=== PATIENT | female | born 1950 | race Hispanic/Latino ===

== ENCOUNTER 2017-10-02 18:40 | Observation (INO) | payer OTHER ==
[2017-10-02] MEDS ORDERED: TETANUS & DIPHTHERIA TOX,ADULT 0.5 ML VIAL ONE (19:38)
--- NOTE | 2017-10-02 19:41 | RAD REPORT ---
EXAM DESCRIPTION: RAD - Foot Right 3 View - 10/02/2017 7:24 pm CLINICAL HISTORY: Pain;Swelling COMPARISON: No comparisons FINDINGS: Moderate soft tissue swelling is seen along the dorsum of the forefoot. No acute fractures demonstrated. Small bilateral calcaneal spurs noted.
[2017-10-02 19:59] LABS: Urine Blood NEGATIVE (NEG); Urine Glucose 3+ (NEG); Urine Protein NEGATIVE (NEG); Urine Specific Gravity 1.015 (1.005-1.030); Urine pH 7.5 (5.0-7.0)
--- NOTE | 2017-10-02 20:23 | RAD REPORT ---
EXAM DESCRIPTION: CT - Head Brain Wo Cont - 10/02/2017 8:17 pm CLINICAL HISTORY: MENTAL STATUS CHANGE Drowsiness COMPARISON: HEAD BRAIN W O CONTRAST dated 08/11/2011; HEAD BRAIN W O CONTRAST dated 03/24/2011; HEAD BR AIN W O CONTRAST dated 03/24/2011; HEAD BRAIN W O CONTRAST dated 01/16/2011 TECHNIQUE: All CT scans are performed using dose optimization technique as appropriate and may inclu de automated exposure control or mA/KV adjustment according to patient size. FINDINGS: No intracranial hemorrhage, hydrocephalus or extra-axial fluid collection.No areas of brai n edema or evidence of midline shift. The paranasal sinuses and mastoids are clear. The calvarium is intact. IMPRESSION: No acute intracranial abnormality.
[2017-10-02 20:32] LABS: Absolute Monocytes 0.4 K/uL (0.1-1.3); Eosinophils % 2.4 % (0-4.4); Hematocrit 36.2 % (36.0-45.0); MCH 28.6 pg (27.0-35.0); MCV 88.1 fL (80-100); Monocytes % 6.4 % (3.3-12.3); RBC Red Blood Cell Count 4.11 M/uL (3.86-4.86)
[2017-10-02 20:35] LABS: Protime INR 0.92
[2017-10-02 20:39] LABS: ALT/SGPT 23 U/L (12-78); AST/SGOT 14 U/L (15-37); Albumin 3.5 g/dL (3.4-5.0); Alkaline Phosphatase 72 U/L (45-117); BUN Blood Urea Nitrogen 11 mg/dL (7-18); Bicarbonate 24 mmol/L (21-32); Bilirubin Direct < 0.1 mg/dL (0-0.2); Bilirubin Total 0.2 mg/dL (0.2-1.0); CKMB Creatine Kinase MB < 1.0 ng/mL (0.3-3.6); Creatine Phosphokinase 91 U/L (26-192); Glucose Level 91 mg/dL (74-106); Magnesium 2.3 mg/dL (1.8-2.4); NT PRO-BNP 38 pg/mL (<125); Potassium 3.8 mmol/L (3.5-5.1); Protein, Total 6.8 g/dL (6.4-8.2); Sodium Level 141 mmol/L (136-145)
[2017-10-02] MEDS ORDERED: LIDOCAINE 1% W/EPI 1:100,000 MDV 50 ML VIAL ONE (21:11)
--- NOTE | 2017-10-02 21:57 | ER ---
Nurse's Notes [facility] Name: Darby White Age: 67 yrs Sex: Female : 1950 Arrival Date: 10/02/2017 Time: 18:46 Bed 25 Private MD: Sterling Zapata E Diagnosis: Altered mental status, unspecified;Laceration without foreign body of foot-Right Presentation: 10/02 18:49 Presenting complaint: Child states: her mother had a car lift fall down on her right sv foot about an hour ago. Daughter states pt is disoriented as well since. Transition of care: patient was not received from another setting of care. Onset of symptoms was October 02, 2017. Care prior to arrival: None. 18:49 Method Of Arrival: Wheelchair sv 18:49 Acuity: MICA 2 sv 20:43 Risk Assessment: Do you want to hurt yourself or someone else? Patient reports no mg2 desire to harm self or others. Initial Sepsis Screen: Does the patient meet any 2 criteria? No. Patient's initial sepsis screen is negative. Does the patient have a suspected source of infection? No. Patient's initial sepsis screen is negative. Historical: - Allergies: 18:50 No Known Allergies; sv - Home Meds: 23:51 gabapentin 300 mg oral cap 1 cap 3 times per day [Active]; losartan 25 mg oral tab 1 mg2 tab once daily [Active]; ezetimibe oral oral [Active]; duloxetine 60 mg oral cpDR 1 cap once daily [Active]; zolpidem 10 mg Oral tab 1 tab as needed [Active]; Invokana 100 mg oral tab [Active]; Levothroid 75 mcg Oral tab 1 tab once daily [Active]; acetazolamide 250 mg Oral tab 1 tab 2 times per day [Active]; aspirin 81 mg Oral chew [Active]; atorvastatin 40 mg oral tab [Active]; metformin 1,000 mg Oral tab [Active]; Calcium Citrate Oral [Active]; Prilosec 20 mg Oral cpDR [Active]; brinzolamide opthalmic [Active]; - PMHx: 18:50 Diabetes - NIDDM; Hypertension; CHF; left eye blindness; sv 18:51 Glaucoma; Thyroid problem; sv - PSHx: 18:50 EYE SURGERY; Knee surgery; Carpal Tunnel Repair; Tubal ligation; sv - Immunization history:: Adult Immunizations up to date. - Social history:: Smoking status: Patient uses tobacco products. - Ebola Screening: : No symptoms or risks identified at this time. Screenin:43 Abuse screen: Denies threats or abuse. Denies injuries from another. Nutritional mg2 screening: No deficits noted. Tuberculosis screening: No symptoms or risk factors identified. Fall Risk IV access (20 points). Assessment: 20:17 Reassessment: Patient appears in no apparent distress at this time. patient sent to ct mg2 scan. 20:41 General: Appears in no apparent distress. comfortable, Behavior is calm, cooperative. mg2 Pain: Complains of pain in right foot Pain does not radiate. Pain currently is 6 out of 10 on a pain scale. Quality of pain is described as aching. Neuro: Level of Consciousness is awake, alert, obeys commands, Oriented to person, place, situation. Cardiovascular: Capillary refill < 3 seconds Patient's skin is warm and dry. Respiratory: Airway is patent Respiratory effort is even, unlabored, Respiratory pattern is regular, symmetrical. GI: No signs and/or symptoms were reported involving the gastrointestinal system. : No signs and/or symptoms were reported regarding the genitourinary system. EENT: No signs and/or symptoms were reported regarding the EENT system. Derm: Skin laceration in the right foot Skin is pink, warm \T\ dry. normal, Wound noted right foot Wound is 0.5 cm long. Musculoskeletal: Circulation, motion, and sensation intact. Swelling present in right foot. Injury Description: Laceration sustained to right foot is clean. 21:19 Reassessment: Patient appears in no apparent distress at this time. Patient and/or mg2 family updated on plan of care and expected duration. Pain level reassessed. Patient is alert, oriented x 3, equal unlabored respirations, skin warm/dry/pink. 23:09 Reassessment: Patient appears in no apparent distress at this time. Patient and/or mg2 family updated on plan of care and expected duration. Pain level reassessed. Patient is alert, oriented x 3, equal unlabored respirations, skin warm/dry/pink. dr aguilar came and assessed the patient, patient informed about the plan for admission. Vital Signs: 18:51 BP 125 / 73; Pulse 86; Resp 18; Temp 97.6; Pulse Ox 99% ; Weight 61.23 kg; Height 4 ft. sv 9 in. (144.78 cm); Pain 5/10; 20:00 BP 122 / 78; Pulse 78; Resp 18; Pulse Ox 100% ; Pain 4/10; mg2 21:19 BP 123 / 78; Pulse 86; Resp 18; Pulse Ox 100% ; Pain 4/10; mg2 22:00 BP 105 / 76 RA Supine (auto/reg); Pulse 83 MON; Resp 20 S; Pulse Ox 100% on R/A; jp3 23:09 BP 121 / 72; Pulse 74; Resp 18; Pulse Ox 97% on R/A; Pain 0/10; mg2 18:51 Body Mass Index 29.21 (61.23 kg, 144.78 cm) sv ED Course: 18:46 Patient arrived in ED. sb2 18:46 Sterling Zapata MD is Private Physician. sb2 18:49 Arm band placed on right wrist. Patient placed in an exam room, on a stretcher, Patient sv Spoke to Dr Soria regarding pt. Daughter stated that she is disoriented and she is normally A \T\ O x4. Pt was taken back to room and asking for her sister, who has been . 18:50 Triage completed. sv 19:01 Marcelo Fenton, AKANKSHA is Primary Nurse. mg2 19:10 Juan Dan PA is PHCP. cp 19:10 Sterling Soria MD is Attending Physician. cp 19:20 X-ray completed. Portable x-ray completed in exam room. Patient tolerated procedure sw well. 19:21 Foot Right 3 View XRAY In Process Unspecified. EDMS 19:50 Inserted saline lock: 22 gauge in left antecubital area, using aseptic technique. Blood jp3 collected. 19:55 Initial lab(s) drawn, by ma, sent to lab. First set of blood cultures drawn via jp3 22-gauge IV in Left A/C. 20:17 CT Head Brain wo Cont In Process Unspecified. EDMS 20:30 Second set of blood cultures drawn via 23-gauge butterfly needle in Right A/C. jp3 20:31 Juan Flores MD is Attending Physician. cp 20:35 Lactate Sent. jp3 20:35 Procalcitonin Sent. jp3 20:35 AMMONIA Sent. jp3 20:36 Blood Culture Adult (2) Sent. jp3 20:36 Basic Metabolic Panel Sent. jp3 20:36 CBC with Diff Sent. jp3 20:36 Ckmb Sent. jp3 20:36 CPK Sent. jp3 20:36 LFT's Sent. jp3 20:36 Magnesium Sent. jp3 20:36 NT PRO-BNP Sent. jp3 20:36 PT-INR Sent. jp3 20:36 Ptt, Activated Sent. jp3 20:36 Troponin (emerg Dept Use Only) Sent. jp3 20:43 Patient has correct armband on for positive identification. Call light in reach. mg2 21:45 Urine collected: clean catch specimen, clear, melissa colored. jp3 21:45 UDS Sent. jp3 21:56 Sandra Jefferson MD is Hospitalizing Provider. cp 23:40 No provider procedures requiring assistance completed. Patient admitted, IV remains in mg2 place. Administered Medications: 19:41 Drug: Tetanus-Diphtheria Toxoid Adult 0.5 ml {Multifocal Lens Inspector: [employer]. Exp: mg2 10/29/2019. Lot #: [id number]. } Route: IM; Site: left deltoid; 20:40 Follow up: Response: No adverse reaction mg2 22:49 Drug: HYDROcodone-acetaminophen 5 mg-325 mg 1 tabs Route: PO; mg2 23:42 Follow up: Response: No adverse reaction; Marked relief of symptoms mg2 Outcome: 21:57 Decision to Hospitalize by Provider. cp 23:41 Admitted to Med/surg accompanied by tech, via wheelchair, room 231, with chart, Report mg2 called to AKANKSHA Carey 23:41 Condition: stable 23:41 Instructed on the need for admit, Demonstrated understanding of instructions. 10/03 00:38 Patient left the ED. mg2 Signatures: Dispatcher [employer] EDEricka Rand, RN Nadya Taylor Corey, JUNITO PA Ana Paula Shafer sb2 Marcelo Fenton RN AKANKSHA mg2 [place] Acosta jp3
--- NOTE | 2017-10-02 21:57 | EDPHYS ---
Physician Documentation [facility] Name: Darby White Age: 67 yrs Sex: Female : 1950 Arrival Date: 10/02/2017 Time: 18:46 Bed 25 Private MD: Sterling Zapata E ED Physician Juan Flores HPI: 10/02 19:15 This 67 yrs old Female presents to ER via Wheelchair with complaints of Foot cp Injury, Altered Mental Status. 19:15 The patient presents with an injury, a laceration, clean. cp 19:15 The complaints affect the dorsum of left foot. Context: The problem was sustained at home, resulted from a direct blow, from a heavy object. Onset: The symptoms/episode began/occurred today. Associated signs and symptoms: Pertinent positives: family reports patient has been confused and altered today, Pertinent negatives fever, numbness, vomiting. Treatment prior to arrival includes: no previous treatment. Historical: - Allergies: 18:50 No Known Allergies; sv - Home Meds: 23:51 gabapentin 300 mg oral cap 1 cap 3 times per day [Active]; losartan 25 mg oral tab 1 mg2 tab once daily [Active]; ezetimibe oral oral [Active]; duloxetine 60 mg oral cpDR 1 cap once daily [Active]; zolpidem 10 mg Oral tab 1 tab as needed [Active]; Invokana 100 mg oral tab [Active]; Levothroid 75 mcg Oral tab 1 tab once daily [Active]; acetazolamide 250 mg Oral tab 1 tab 2 times per day [Active]; aspirin 81 mg Oral chew [Active]; atorvastatin 40 mg oral tab [Active]; metformin 1,000 mg Oral tab [Active]; Calcium Citrate Oral [Active]; Prilosec 20 mg Oral cpDR [Active]; brinzolamide opthalmic [Active]; - PMHx: 18:50 Diabetes - NIDDM; Hypertension; CHF; left eye blindness; sv 18:51 Glaucoma; Thyroid problem; sv - PSHx: 18:50 EYE SURGERY; Knee surgery; Carpal Tunnel Repair; Tubal ligation; sv - Immunization history:: Adult Immunizations up to date. - Social history:: Smoking status: Patient uses tobacco products. - Ebola Screening: : No symptoms or risks identified at this time. ROS: 19:20 Constitutional: Negative for body aches, chills, fever, poor PO intake. cp 19:20 Eyes: Negative for injury, pain, redness, and discharge. cp 19:20 ENT: Negative for drainage from ear(s), ear pain, sore throat, difficulty swallowing, difficulty handling secretions. 19:20 Cardiovascular: Negative for chest pain, edema, palpitations. 19:20 Respiratory: Negative for cough, shortness of breath, wheezing. 19:20 Abdomen/GI: Negative for abdominal pain, nausea, vomiting, and diarrhea, constipation, black/tarry stool, rectal bleeding. 19:20 Back: Negative for pain at rest, pain with movement, radiated pain. 19:20 : Negative for urinary symptoms. 19:20 MS/extremity: Positive for injury or acute deformity, laceration, of the dorsum left foot, Negative for paresthesias. 19:20 Neuro: Positive for altered mental status, Negative for headache, loss of consciousness, syncope, near syncope, weakness. 19:20 All other systems are negative. Exam: 19:27 Constitutional: The patient appears in no acute distress, alert, awake, cp non-diaphoretic, non-toxic, well developed, well nourished. 19:27 Head/Face: Normocephalic, atraumatic. cp 19:27 Eyes: Periorbital structures: appear normal, Pupils: equal, round, and reactive to light and accomodation, Extraocular movements: intact throughout, Conjunctiva: normal, no exudate, no injection, Sclera: no appreciated abnormality, Lids and lashes: appear normal, bilaterally. 19:27 ENT: External ear(s): are unremarkable, Ear canal(s): are normal, clear, TM's: dullness, bilaterally, Nose: is normal, Mouth: Lips: moist, Oral mucosa: pink and intact, moist, Posterior pharynx: is normal, airway is patent, no erythema, no exudate, Voice: is normal. 19:27 Neck: ROM/movement: is normal, is supple, without pain, no range of motions limitations, no meningismus, no nuchal rigidity. 19:27 Chest/axilla: Inspection: normal, Palpation: is normal, no crepitus, no tenderness. 19:27 Cardiovascular: Rate: normal, Rhythm: regular, Pulses: Pulses are 2+ in right radial artery and left radial artery. Edema: is not appreciated, JVD: is not appreciated. 19:27 Respiratory: the patient does not display signs of respiratory distress, Respirations: normal, no use of accessory muscles, no retractions, no splinting, no tachypnea, labored breathing, is not present, Breath sounds: are clear throughout, no decreased breath sounds, no stridor, no wheezing. 19:27 Abdomen/GI: Inspection: abdomen appears normal, Palpation: abdomen is soft and non-tender, in all quadrants. 19:27 Back: pain, is absent, ROM is normal. 19:27 Skin: injury, laceration(s), the wound is approximately 1 cm(s), of the dorsum left foot, that can be described as clean, no foreign body, linear, with mild bleeding. 19:27 Neuro: Orientation: to person, situation, Not oriented to time, Mentation: lucid, able to follow commands, Cerebellar function: is grossly normal, Motor: moves all fours, strength is normal, Sensation: no obvious gross deficits. 20:36 ECG was reviewed by the Attending Physician. cp Vital Signs: 18:51 BP 125 / 73; Pulse 86; Resp 18; Temp 97.6; Pulse Ox 99% ; Weight 61.23 kg; Height 4 ft. sv 9 in. (144.78 cm); Pain 5/10; 20:00 BP 122 / 78; Pulse 78; Resp 18; Pulse Ox 100% ; Pain 4/10; mg2 21:19 BP 123 / 78; Pulse 86; Resp 18; Pulse Ox 100% ; Pain 4/10; mg2 22:00 BP 105 / 76 RA Supine (auto/reg); Pulse 83 MON; Resp 20 S; Pulse Ox 100% on R/A; jp3 23:09 BP 121 / 72; Pulse 74; Resp 18; Pulse Ox 97% on R/A; Pain 0/10; mg2 18:51 Body Mass Index 29.21 (61.23 kg, 144.78 cm) sv Laceration: 21:57 Wound Repair of 1cm ( 0.4in ) subcutaneous laceration to dorsum of right foot. Linear cp shaped.. Distal neuro/vascular/tendon intact. Anesthesia: Wound infiltrated with 2 mls of 1% lidocaine w/ Epi. Wound prep: Moderate cleansing by nurse. Skin closed with 1 4-0 Prolene using interrupted sutures and sterile technique. Dressed with Bacitracin, 4x4's. Patient tolerated well. MDM: 19:11 Patient medically screened. cp 20:00 Differential diagnosis: dislocation, open fracture, closed fracture, contusion, sepsis, cp medication reaction, UTI. 21:05 Data reviewed: vital signs, nurses notes, lab test result(s), EKG, radiologic studies, cp CT scan, plain films. 21:05 Test interpretation: by ED physician or midlevel provider: ECG, plain radiologic cp studies. Response to treatment: the patient's symptoms have mildly improved after treatment. 21:10 Physician consultation: Sandra Jefferson MD was called at 21:10, was contacted at 21:10, regarding admission, to the telemetry unit. patient's condition. 10/02 19:32 Order name: Basic Metabolic Panel; Complete Time: 21:01 10/02 21:02 Interpretation: Normal except: CL 109; GFR 72. 10/02 19:32 Order name: CBC with Diff; Complete Time: 21:01 10/02 21:02 Interpretation: Normal except: HGB 11.8; BASO% 2.0. 10/02 19:32 Order name: Ckmb; Complete Time: 21:01 10/02 19:32 Order name: CPK; Complete Time: 21:01 10/02 19:32 Order name: LFT's; Complete Time: 21:01 10/02 19:32 Order name: Magnesium; Complete Time: 21:01 10/02 19:32 Order name: NT PRO-BNP; Complete Time: 21:01 10/02 19:32 Order name: PT-INR; Complete Time: 21:01 cp 10/02 19:32 Order name: Ptt, Activated; Complete Time: 21:01 10/02 19:32 Order name: Troponin (emerg Dept Use Only); Complete Time: 21:01 10/02 19:32 Order name: Blood Culture Adult (2) 10/02 19:32 Order name: AMMONIA; Complete Time: 21:01 10/02 19:32 Order name: Procalcitonin; Complete Time: 21:57 10/02 21:57 Interpretation: Reviewed. 10/02 19:32 Order name: Lactate; Complete Time: 21:01 10/02 19:00 Order name: Foot Right 3 View XRAY; Complete Time: 20:30 sv 10/02 20:30 Interpretation: Report reviewed. cp 10/02 19:15 Order name: Urine Dipstick-Ancillary (obtain specimen); Complete Time: 19:41 cp 10/02 19:32 Order name: EKG; Complete Time: 19:33 cp 10/02 19:32 Order name: Cardiac monitoring; Complete Time: 20:15 cp 10/02 19:32 Order name: EKG - Nurse/Tech; Complete Time: 20:40 cp 10/02 19:32 Order name: IV Saline Lock; Complete Time: 20:15 cp 10/02 19:32 Order name: Labs collected and sent; Complete Time: 20:15 cp 10/02 19:32 Order name: O2 Per Protocol; Complete Time: 20:15 cp 10/02 19:32 Order name: O2 Sat Monitoring; Complete Time: 20:15 cp 10/02 19:32 Order name: CT Head Brain wo Cont; Complete Time: 20:30 cp 10/02 20:30 Interpretation: Report reviewed. 10/02 19:36 Order name: Urine Dipstick--Ancillary (enter results); Complete Time: 20:30 mw2 10/02 20:30 Interpretation: Normal except: UGLUC 3+; UPH 7.5. cp 10/02 21:08 Order name: UDS; Complete Time: 23:33 cp 10/02 23:34 Interpretation: Reviewed. cp 10/02 23:04 Order name: Echo with Doppler EDMS 10/02 23:04 Order name: Carotid Artery Bilateral EDMS EC:36 Rate is 78 beats/min. Rhythm is regular. ND interval is normal. QRS interval is normal. cp QT interval is normal. Interpreted by me. Reviewed by me. Administered Medications: 19:41 Drug: Tetanus-Diphtheria Toxoid Adult 0.5 ml {Motor Vehicle Field Representative: [employer]. Exp: mg2 10/29/2019. Lot #: [id number]. } Route: IM; Site: left deltoid; 20:40 Follow up: Response: No adverse reaction mg2 22:49 Drug: HYDROcodone-acetaminophen 5 mg-325 mg 1 tabs Route: PO; mg2 23:42 Follow up: Response: No adverse reaction; Marked relief of symptoms mg2 Disposition: 08/24/18 21:57 Hospitalization ordered by Sandra Jefferson for Observation. Preliminary diagnosis are Altered mental status, unspecified, Laceration without foreign body of foot - Right. - Bed requested for Telemetry/MedSurg (observation). - Status is Observation. mg2 - Condition is Stable. - Problem is new. - Symptoms have improved. UTI on Admission? No Addendum: 10/05/2017 06:31 Co-signature as Attending Physician, Juan Flores MD I agree with the assessment and c posada plan of care. Signatures: Dispatcher [employer] EDIesha Mendoza RN Ericka Chou RN RN sv Anderson, Corey, MD MD cha Page, Corey, PA PA Marcelo Villafuerte RN RN mg2 Corrections: (The following items were deleted from the chart) 10/02 23:25 21:57 Hospitalization Ordered by Sandra Jefferson MD for Observation. Preliminary diagnosis is Altered mental status, unspecified; Laceration without foreign body of foot - Right. Bed requested for Telemetry/MedSurg (observation). Status is Observation. Condition is Stable. Problem is new. Symptoms have improved. UTI on Admission? No. cp 10/03 00:38 10/02 23:25 10/02/2017 21:57 Hospitalization Ordered by Sandra Jefferson MD for mg2 Observation. Preliminary diagnosis is Altered mental status, unspecified; Laceration without foreign body of foot - Right. Bed requested for Telemetry/MedSurg (observation). Status is Observation. Condition is Stable. Problem is new. Symptoms have improved. UTI on Admission? No. kl
[2017-10-02 22:34] LABS: Barbiturates NEGATIVE (NEGATIVE); Benzodiazepines NEGATIVE (NEGATIVE); Cocaine NEGATIVE (NEGATIVE); METHAMPHETAM NEGATIVE (NEGATIVE); Methadone NEGATIVE (NEGATIVE); Opiates NEGATIVE (NEGATIVE); Phencyclidine NEGATIVE (NEGATIVE); THC Cannibis NEGATIVE (NEGATIVE)
[2017-10-02] MEDS ORDERED: HYDROCODONE/APAP 5/325 MG TAB ONE (22:49)
--- NOTE | 2017-10-02 22:57 | P.HP ---
Certification for Inpatient Patient admitted to: Observation With expected LOS: <2 Midnights Practitioner: I am a practitioner with admitting privileges, knowledge of patient current condition, hospital course, and medical plan of care. Services: Services provided to patient in accordance with Admission requirements found in Title 42 Section 412.3 of the Code of Federal Regulations Patient History Date of Service: 10/02/17 Reason for admission: Acute encephalopathy History of Present Illness: Ms. White is a 67-year-old woman with history of diabetes mellitus types 2, hypertension, left eye blindness, Colace afternoon when she was cleaning her house, had 1 of the car lifting drop from her hands to his food, leading with an abrasion in her right dorsal aspect of the foot. Her daughter, who lives with her, was concerned because the patient became confused after this episode. She was asking for her sister who 2 years ago. Her daughter says that she never did confuse, but today she was talking nonsense. No history of fever or chills. My encounter the patient was oriented x3, who was answering coherently my questions. The patient denied any weakness, however she was complaining of left upper leg tingling which last for 20 min. Allergies No Known Allergies Allergy (Unverified 03/24/11 11:09) Home medications list reviewed: Yes Home Medications: Ambien Cr 10 mg PO PRN PRN 03/24/11 Aspirin Chewable 03/24/11 Fish Oil 1,200 mg PO DAILY 03/24/11 Bimatoprost [Lumigan] 2.5 mg LEFTEYE DAILY 03/25/11 Brimonidine Tartrate/Timolol [Combigan 0.2%-0.5% Eye Drops] 2.5 ml OP DAILY 22/01 Metformin ER [Glucophage ER*] 500 mg PO DAILY 03/25/11 Pravastatin [Pravachol*] 40 mg PO DAILY 03/25/11 Pregabalin [Lyrica] 150 mg PO BID #60 capsule 03/28/11 Duloxetine HCl [Cymbalta] 60 mg PO DAILYPRN PRN 12/14/11 Levothyroxine Sodium 88 mcg PO DAILY 12/14/11 Lisinopril 5 mg PO DAILY 12/14/11 Multivits-Min/FA/Lycopene/Lut [Centrum Silver Tablet] 1 tab PO DAILY 11/04/12 Naproxen 500 mg PO DAILYPRN PRN 12/14/11 Pantoprazole Sodium [Protonix] 40 mg PO BID #60 tablet. 12/15/11 Trazodone [Desyrel*] 50 mg PO BEDTIME #30 tablet 12/15/11 - Past Medical/Surgical History Diabetic: Yes -: Diabetes mellitus -: CHF -: Hypertension -: Glaucoma -: Tubal ligation -: eye surgery -: Knee surgery -: Carpal tunnel repair - Family History Family History: Reviewed- Non-Contributory - Social History Smoking Status: Former smoker Alcohol use: No CD- Drugs: No Caffeine use: Yes Place of Residence: Home Review of Systems 10-point ROS is otherwise unremarkable Physical Examination - Physical Exam General: Alert, In no apparent distress, Oriented x3 HEENT: Atraumatic, PERRLA, Mucous membr. moist/pink, EOMI, Sclerae nonicteric Neck: Supple, 2+ carotid pulse no bruit, No LAD, Without JVD or thyroid abnormality Respiratory: Clear to auscultation bilaterally, Normal air movement Cardiovascular: Regular rate/rhythm, Normal S1 S2 Gastrointestinal: Normal bowel sounds, No tenderness Musculoskeletal: No tenderness Integumentary: No rashes Neurological: Normal speech, Normal strength at 5/5 x4 extr, Normal tone, Cranial nerves 3-12 intact, Normal affect Lymphatics: No axilla or inguinal lymphadenopathy - Studies Laboratory Data (last 24 hrs) 10/02/17 19:50: PT 10.9, INR 0.92, APTT 26.7 10/02/17 19:50: WBC 5.6, Hgb 11.8 L, Hct 36.2, Plt Count 279 10/02/17 19:50: Sodium 141, Potassium 3.8, BUN 11, Creatinine 0.80, Glucose 91, Magnesium 2.3, Total Bilirubin 0.2, AST 14 L, ALT 23, Alkaline Phosphatase 72 Assessment and Plan - Problems (Diagnosis) (1) Acute encephalopathy Current Visit: Yes Status: Acute (2) Diabetes mellitus Current Visit: Yes Status: Acute Qualifiers: Diabetes mellitus type: type 2 Diabetes mellitus long-term insulin use: without intermodal dispatcher use Diabetes mellitus complication status: with unspecified complications Qualified Code(s): E11.8 - Type 2 diabetes mellitus with unspecified complications (3) Hypertension Current Visit: Yes Status: Acute Qualifiers: Hypertension type: essential hypertension Qualified Code(s): I10 - Essential (primary) hypertension - Plan The patient will be admitted to the hospital due to of transitory acute encephalopathy. She actually came back to her normal baseline, CT of the head shows no acute abnormality. Differential diagnosis include TIA/stroke. Will order an MRI of the brain, bilateral carotid Doppler, and echocardiogram. - Advance Directives Does patient have a Living Will: No Does patient have a Durable POA for Healthcare: No - Code Status/Comfort Care Code Status Assessed: Yes Code Status: Full Code
[2017-10-03] MEDS ORDERED: ACETAMINOPHEN 500 MG TAB PO PRN (00:04)
[2017-10-03] MEDS ORDERED: ONDANSETRON 4 MG/2 ML VIAL IV PRN (00:04)
[2017-10-03 00:45] VITALS: BMI 29.6
[2017-10-03 00:48] VITALS: O2SAT 97
[2017-10-03 05:35] LABS: Potassium 3.7 mmol/L (3.5-5.1)
[2017-10-03] MEDS: INSULIN -REGULAR HUMAN 50 UNIT/0.5 ML ML SQ SCH ×2 (07:30→11:30)
--- NOTE | 2017-10-03 08:31 | EKG ---
Test Date: 2017-10-02 Test Time: 20:28:54 Artists' Model: MEASUREMENT RESULTS: Intervals: Rate: 78 NV: 130 QRSD: 76 QT: 386 QTc: 440 [place]: P: 47 NV: 130 QRS: 6 T: 41 INTERPRETIVE STATEMENTS: Normal sinus rhythm Normal ECG Compared to ECG 12/15/2011 06:54:16 Sinus bradycardia no longer present Electronically Signed On 10-03-17 08:30:37 CDT by Rafita Morejon
[2017-10-03] MEDS ORDERED: ASPIRIN 81 MG CHEWABLE TABLET PO SCH (09:00)
[2017-10-03] MEDS ORDERED: ENOXAPARIN 40 MG/0.4 ML SQ SCH (09:00)
--- NOTE | 2017-10-03 11:31 | RAD REPORT ---
EXAM DESCRIPTION: USCAROTID ARTERY BILATERAL10/03/2017 9:30 am CLINICAL HISTORY: tia COMPARISON: 2011 FINDINGS: The velocity of the right internal carotid artery equals 88 cm/sec. The right ICA/CCA rati o 01.4 The velocity of the left internal carotid artery equals 155 cm/sec. The left ICA/CCA ratio 2 Mild plaque is present within the carotid arteries. The vertebral arteries demonstrate antegrade flow IMPRESSION: Mild plaque within the carotid arteries Elevation of the velocity of the left internal carotid artery probably is secondary to being tortuous rather than a hemodynamically significant stenosis
[2017-10-03 15:06] VITALS: BP 140/59; TEMP 97.5
--- NOTE | 2017-10-03 22:31 | DS ---
Date of Discharge: 10/03/2017 Discharge Diagnoses: 1.Acute onset of confusion, resolved. 2.Rule out transient ischemic attack. 3.Hypertension. 4.Hyperlipidemia. 5.Congestive heart failure. 6.Glaucoma. 7.Left foot injury. 8.Diabetes. 9.Neuropathy. 10.Hypothyroidism. Consult: None. Procedures: 1.CAT scan of the head done in the emergency room showed no acute intracranial abnormalities. 2.Carotid Doppler done after admission showed mild plaque within the carotid arteries. Elevation of the velocity of the left internal carotid artery probably secondary to being tortuous rather than he modynamically significant stenosis. History Of Present Illness: Please refer to Dr. Boswell's admission note. Hospital Course: Initially, the patient presented with history of acute onset of confusion after inj ury happened while she was lifting stuff from her car which fell on her foot. In the ER, she was bruno luated and a CAT scan was negative. She was admitted to rule out TIA. HIDA x-ray of the foot was ne gative except for moderate soft tissue swelling along the dorsum of the forefoot. There were no frac tures. The patient had a carotid Doppler after admission that was negative. She will continue home medication. MRI of the brain ordered and echocardiogram but possibly they will not be done until Thu. The patient was offered to stay until Thursday, she refused, stated that she would like to go [facility]. So we will arrange for that as outpatient. She has a primary care physician, Dr. Soto. Result s to be faxed to Dr. Soto and she will see Dr. Soto on Thursday to discuss the results and decide if she had a TIA or not. In the meantime, patient was on statin, aspirin. She did not have a neurol ogic deficit this morning, had total at the bedside. The patient had physical therapy evaluation and they recommended she can go home. They recommend walker for protection. She is currently lying in bed, looks comfortable. She would like some pain medication to control her foot pain, so she will be given Ultram 30 tablets as needed. Discharge Condition: Stable. Discharge Diet: Cardiac/diabetic 1800 ADA. Discharge Followup: Dr. Soto on Thursday. She will have MRI and echocardiogram on Thursday at our [facility]. Discharge Activity: As tolerated. Discharge Physical Examination: Vital Signs: Blood pressure is 119/63, respiratory rate 18, pulse 7 8, temperature 97.4. General: The patient is alert and oriented x3. Does not look in any distress. HEENT: Atraumatic, normocephalic. PERRLA. Oral mucosa is moist. Neck: Supple. No JVD. No bruits. Heart: Regular rate rhythm. S1, S2 normal. No gallop or murmur. Abdomen: Soft, nontender. No masses. No hepatosplenomegaly. Positive bowel sounds. Extremities: No clubbing, cyanosis, or edema. No calf tenderness. Right foot with some swelling an d tenderness to palpation. Discharge Medication List: Ultram 50 mg every 6 hours as needed for pain, aspirin 81 mg once a day, Zocor 40 mg once a day, calcium tablet 1 tablet orally once a day, Invokana 100 mg once a day, Cymbal ta 60 mg daily as needed, Zetia 10 mg once a day, Neurontin 300 mg t.i.d., Synthroid 75 mcg once a da y, losartan 25 mg daily, metformin 500 mg twice a day, omeprazole 20 mg as needed, tramadol 50 mg every 6 hours as needed, Ambien 10 mg at nigh ttime, Diamox 250 mg twice a day. MIKA/GAL Voice ID: [id number] Report ID: [id number]
== END 2017-10-03 14:30 | disposition home or self-care (01) ==
LOC: ER 18:40 → ERHOLD 23:06 → 2ND 23:55
PROVIDERS: ADMIT Internal Medicine; ATTEND Internal Medicine
PROC: 0JQQ0ZZ Repair Right Foot Subcutaneous Tissue and Fascia, Open Approach (ICD-10-PCS; principal; 2017-10-02)
DX: R41.0 Disorientation, unspecified (principal); E78.5 Hyperlipidemia, unspecified; H40.9 Unspecified glaucoma; E03.9 Hypothyroidism, unspecified; S91.311A Laceration without foreign body, right foot, initial encounter; W22.8XXA Striking against or struck by other objects, initial encounter; Y92.009 Unspecified place in unspecified non-institutional (private) residence as the place of occurrence of the external cause; I11.0 Hypertensive heart disease with heart failure; I50.9 Heart failure, unspecified; E11.40 Type 2 diabetes mellitus with diabetic neuropathy, unspecified; Z23 Encounter for immunization
CPT/HCPCS: 12001; 36415; 70450; 73630; 80048; 80061; 80076; 80307 ×8; 81003; 82140; 82550; 82553; 82962 ×2; 83036; 83605; 83735; 83880; 84132; 84145; 84484; 85025; 85610; 85730; 87040 ×2; 90714; 93005; 93880; 97163; 99285; G0378 ×2; J1650

== ENCOUNTER 2019-04-03 00:15 | Emergency (ER) | payer OTHER ==
[2019-04-03] MEDS ORDERED: NA CHLORIDE 0.9% 1,000 ML ONE (02:31)
[2019-04-03 02:33] LABS: Absolute Lymphocytes (CBC) 2.3 K/uL (0.7-4.9); Basophils % 0.4 % (0-1.3); Hematocrit 40.8 % (36.0-45.0); Lymphocytes % 56.2 % (15.3-44.8); MPV 7.9 fL (7.6-11.3); RBC Red Blood Cell Count 4.45 M/uL (3.86-4.86)
[2019-04-03 02:38] LABS: Protime INR 0.88
[2019-04-03 02:51] LABS: ALT/SGPT 17 U/L (12-78); AST/SGOT 20 U/L (15-37); Albumin 3.4 g/dL (3.4-5.0); Alkaline Phosphatase 114 U/L (45-117); BUN Blood Urea Nitrogen 4 mg/dL (7-18); Bicarbonate 33 mmol/L (21-32); Bilirubin Direct < 0.1 mg/dL (0-0.2); Bilirubin Total 0.2 mg/dL (0.2-1.0); Glucose Level 179 mg/dL (74-106); Lipase 178 U/L (73-393); NT PRO-BNP 146 pg/mL (<125); Potassium 3.4 mmol/L (3.5-5.1); Sodium Level 141 mmol/L (136-145); Troponin (Emerg Dept Use Only) < 0.02 ng/mL (0.0-0.045)
[2019-04-03 02:58] LABS: Urine Blood NEGATIVE (NEG); Urine Glucose NEGATIVE (NEG); Urine Protein NEGATIVE (NEG); Urine pH 6.5 (5.0-7.0)
[2019-04-03 03:05] LABS: Blood Morphology Comment NOT SEEN (NOT SEEN); Platelet Estimate ADEQ
[2019-04-03] MEDS ORDERED: POTASSIUM 25 MEQ EFFERV TAB ONE (03:14)
--- NOTE | 2019-04-03 04:21 | ER ---
Nurse's Notes [facility] Name: Darby White Age: 68 yrs Sex: Female : 1950 Arrival Date: 04/03/2019 Time: 00:30 Bed 6 Private MD: Diagnosis: Weakness;Hypokalemia Presentation: 04/03 00:15 Presenting complaint: EMS states: Pt was found by the family on the ground alert and jb4 oriented. Family reports patient had been acting weird all day. She is normally fully independent, however today she was walking weird and her speech was off per family. Her last known norm is unknown. 00:15 Transition of care: patient was not received from another setting of care. Onset of jb4 symptoms was April 02, 2019. Risk Assessment: Do you want to hurt yourself or someone else? Patient reports no desire to harm self or others. Initial Sepsis Screen: Does the patient meet any 2 criteria? Altered Mental Status. Yes Does the patient have a suspected source of infection? No. Patient's initial sepsis screen is negative. Care prior to arrival: None. 00:15 Method Of Arrival: EMS: [facility] jb4 00:15 Acuity: MICA 3 jb4 Historical: - Allergies: 00:15 No Known Allergies; jb4 - Home Meds: 00:15 duloxetine oral oral [Active]; gabapentin oral oral [Active]; losartan oral oral jb4 [Active]; metformin Oral [Active]; - PMHx: 00:15 CHF; Diabetes - NIDDM; Glaucoma; Hypertension; left eye blindness; Thyroid problem; jb4 - PSHx: 00:15 EYE SURGERY; Carpal Tunnel Repair; Tubal ligation; Knee surgery; jb4 - Immunization history:: Adult Immunizations up to date. - Coronavirus screen:: The patient has NOT traveled to [place] in the past 14 days. Proceed with normal triage process as indicated. The patient has NOT had contact with known/suspected case of Coronavirus? Proceed with normal triage procedures. - Social history:: Smoking status: Patient denies any tobacco usage or history of. - Family history:: not pertinent. - Ebola Screening: : No symptoms or risks identified at this time. Screenin:15 Abuse screen: Denies threats or abuse. Nutritional screening: No deficits noted. jb4 Tuberculosis screening: No symptoms or risk factors identified. Fall Risk Fall in past 12 months (25 points). IV access (20 points). Gait- Weak (10 pts.). Mental Status- Oriented to own ability (0 pts). Total Farias Fall Scale indicates High Risk Score (45 or more points). Fall prevention measures have been instituted. Side Rails Up X 2 Placed Close to Nursing Station Frequent Obs/Assessments Occuring Family Present and informed to notify staff if the need to leave the bedside As available patient and family educated on Fall Prevention Program and Strategies. Assessment: 00:15 General: Appears in no apparent distress. comfortable, Behavior is calm, cooperative, jb4 appropriate for age. Pain: Denies pain. Neuro: Level of Consciousness is awake, alert, obeys commands, Oriented to person, place, situation, Pt knows who the president is but thinks the year is 1999. Nursing Home Director are equal bilaterally Moves all extremities. Full function Speech is normal, Facial symmetry appears normal, Pupils are PERRLA, Intact. Cardiovascular: Patient's skin is warm and dry. Respiratory: Airway is patent Respiratory effort is even, unlabored, Respiratory pattern is regular, symmetrical. GI: No signs and/or symptoms were reported involving the gastrointestinal system. : No signs and/or symptoms were reported regarding the genitourinary system. EENT: No signs and/or symptoms were reported regarding the EENT system. Derm: Skin is intact, Skin is pink, warm \T\ dry. Musculoskeletal: Circulation, motion, and sensation intact. Range of motion: intact in all extremities. 01:13 Reassessment: Patient appears in no apparent distress at this time. No changes from jb4 previously documented assessment. Patient and/or family updated on plan of care and expected duration. Pain level reassessed. 02:30 Reassessment: Patient appears in no apparent distress at this time. Patient and/or jb4 family updated on plan of care and expected duration. Pain level reassessed. Patient is alert, oriented x 3, equal unlabored respirations, skin warm/dry/pink. Pt is resting in bed with family at the bedside. 03:30 Reassessment: Patient appears in no apparent distress at this time. Patient and/or jb4 family updated on plan of care and expected duration. Pain level reassessed. Patient is alert, oriented x 3, equal unlabored respirations, skin warm/dry/pink. 04:42 Reassessment: Patient appears in no apparent distress at this time. Patient and/or jb4 family updated on plan of care and expected duration. Pain level reassessed. Patient is alert, oriented x 3, equal unlabored respirations, skin warm/dry/pink. Vital Signs: 00:15 BP 162 / 86; Pulse 81; Resp 16; Temp 97.8(TE); Pulse Ox 99% on R/A; Weight 61.23 kg jb4 (R); Height 4 ft. 9 in. (144.78 cm) (R); Pain 0/10; 01:15 BP 154 / 87; Pulse 82; Resp 16; Pulse Ox 97% on R/A; jb4 02:45 BP 155 / 83; Pulse 69; Resp 16; Pulse Ox 100% on R/A; jb4 04:00 BP 145 / 74; Pulse 69; Resp 16; Pulse Ox 99% on R/A; jb4 00:15 Body Mass Index 29.21 (61.23 kg, 144.78 cm) jb4 ED Course: 00:15 Arm band placed on right wrist. jb4 00:15 Patient has correct armband on for positive identification. Placed in gown. Bed in low jb4 position. Call light in reach. Side rails up X 1. Pulse ox on. NIBP on. 00:30 Patient arrived in ED. jb4 00:33 Juan Flores MD is Attending Physician. [facility] 00:40 Leighton Payan, RN is Primary Nurse. jb4 01:08 Triage completed. jb4 01:20 Initial lab(s) drawn, by me, by EMS personnel. Inserted saline lock: 20 gauge in left jb4 antecubital area, using aseptic technique. Blood collected. 02:29 Radiology exam delayed due to lab results not completed at this time. (BUN/Creatinine). kw1 02:47 Radiology exam delayed due to lab results not completed at this time. (BUN/Creatinine). kw1 04:43 No provider procedures requiring assistance completed. IV discontinued, intact, jb4 bleeding controlled, No redness/swelling at site. Pressure dressing applied. 07:52 XRAY Chest (1 view) In Process Unspecified. EDMS 07:52 CT Abd/Pelvis - IV Contrast Only In Process Unspecified. EDMS 07:52 CT Head C Spine In Process Unspecified. EDMS Administered Medications: 02:30 Drug: NS 0.9% 500 ml Route: IV; Rate: bolus; Site: left antecubital; jb4 03:45 Follow up: Response: No adverse reaction; IV Status: Completed infusion; IV Intake: jb4 500ml 03:45 Drug: NS 0.9% 1000 ml Route: IV; Rate: 125 ml/hr; Site: left antecubital; jb4 03:45 Drug: Potassium Effervescent Tablet 25 mEq Route: PO; jb4 04:18 Follow up: Response: No adverse reaction jb4 04:37 Drug: Aspirin Chewable Tablet 162 mg Route: PO; jb4 04:41 Follow up: Response: No adverse reaction; Medication administered at discharge. jb4 Intake: 03:45 IV: 500ml; Total: 500ml. jb4 Outcome: 04:19 Discharge ordered by MD. baeza 04:43 Discharged to home via wheelchair, with family. jb4 04:43 Condition: stable 04:43 Discharge instructions given to patient, Instructed on discharge instructions, follow up and referral plans. Demonstrated understanding of instructions, follow-up care. 04:44 Patient left the ED. jb4 Signatures: Dispatcher [employer] EDMS Juan Flores MD MD cha Bryson, James, RN RN jb4 Iesha Vasques kw1
--- NOTE | 2019-04-03 04:21 | EDPHYS ---
Physician Documentation [facility] Name: Darby White Age: 68 yrs Sex: Female : 1950 Arrival Date: 04/03/2019 Time: 00:30 Bed 6 Private MD: ED Physician Juan Flores HPI: 04/03 02:00 This 68 yrs old Female presents to ER via EMS with complaints of syncope. felisha 02:00 The patient presents with abdominal pain. Onset: The symptoms/episode began/occurred felisha just prior to arrival, this morning. The patient has experienced syncope. Onset: The symptoms/episode began/occurred this morning. Duration: This was a single episode, that lasted an unknown period of time. Context: the episode(s) was witnessed, by family. Associated injury: The patient did not suffer any apparent associated injury. Historical: - Allergies: 00:15 No Known Allergies; jb4 - Home Meds: 00:15 duloxetine oral oral [Active]; gabapentin oral oral [Active]; losartan oral oral jb4 [Active]; metformin Oral [Active]; - PMHx: 00:15 CHF; Diabetes - NIDDM; Glaucoma; Hypertension; left eye blindness; Thyroid problem; jb4 - PSHx: 00:15 EYE SURGERY; Carpal Tunnel Repair; Tubal ligation; Knee surgery; jb4 - Immunization history:: Adult Immunizations up to date. - Coronavirus screen:: The patient has NOT traveled to [place] in the past 14 days. Proceed with normal triage process as indicated. The patient has NOT had contact with known/suspected case of Coronavirus? Proceed with normal triage procedures. - Social history:: Smoking status: Patient denies any tobacco usage or history of. - Family history:: not pertinent. - Ebola Screening: : No symptoms or risks identified at this time. ROS: 02:00 Constitutional: Negative for fever, chills, and weight loss, Eyes: Negative for injury, felisha pain, redness, and discharge, ENT: Negative for injury, pain, and discharge, Neck: Negative for injury, pain, and swelling, Cardiovascular: Negative for chest pain, palpitations, and edema, Respiratory: Negative for shortness of breath, cough, wheezing, and pleuritic chest pain, Abdomen/GI: Negative for abdominal pain, nausea, vomiting, diarrhea, and constipation, Back: Negative for injury and pain, : Negative for injury, bleeding, discharge, and swelling, MS/Extremity: Negative for injury and deformity, Skin: Negative for injury, rash, and discoloration, Psych: Negative for depression, anxiety, suicide ideation, homicidal ideation, and hallucinations, Allergy/Immunology: Negative for hives, rash, and allergies, Endocrine: Negative for neck swelling, polydipsia, polyuria, polyphagia, and marked weight changes, Hematologic/Lymphatic: Negative for swollen nodes, abnormal bleeding, and unusual bruising. 02:00 Neuro: Positive for dizziness, syncope, weakness. Exam: 02:00 Constitutional: This is a well developed, well nourished patient who is awake, alert, felisha and in no acute distress. Head/Face: Normocephalic, atraumatic. Eyes: Pupils equal round and reactive to light, extra-ocular motions intact. Lids and lashes normal. Conjunctiva and sclera are non-icteric and not injected. Cornea within normal limits. Periorbital areas with no swelling, redness, or edema. ENT: Nares patent. No nasal discharge, no septal abnormalities noted. Tympanic membranes are normal and external auditory canals are clear. Oropharynx with no redness, swelling, or masses, exudates, or evidence of obstruction, uvula midline. Mucous membranes moist. Neck: Trachea midline, no thyromegaly or masses palpated, and no cervical lymphadenopathy. Supple, full range of motion without nuchal rigidity, or vertebral point tenderness. No Meningismus. Chest/axilla: Normal chest wall appearance and motion. Nontender with no deformity. No lesions are appreciated. Cardiovascular: Regular rate and rhythm with a normal S1 and S2. No gallops, murmurs, or rubs. Normal PMI, no JVD. No pulse deficits. Respiratory: Lungs have equal breath sounds bilaterally, clear to auscultation and percussion. No rales, rhonchi or wheezes noted. No increased work of breathing, no retractions or nasal flaring. Back: No spinal tenderness. No costovertebral tenderness. Full range of motion. Female : Normal external genitalia. Skin: Warm, dry with normal turgor. Normal color with no rashes, no lesions, and no evidence of cellulitis. MS/ Extremity: Pulses equal, no cyanosis. Neurovascular intact. Full, normal range of motion. Neuro: Awake and alert, GCS 15, oriented to person, place, time, and situation. Cranial nerves II-XII grossly intact. Motor strength 5/5 in all extremities. Sensory grossly intact. Cerebellar exam normal. Normal gait. Psych: Awake, alert, with orientation to person, place and time. Behavior, mood, and affect are within normal limits. 02:00 Abdomen/GI: Inspection: abdomen appears normal, Bowel sounds: normal, Palpation: mild abdominal tenderness, in the right lower quadrant, Liver: no appreciated palpable abnormalities, Hernia: not appreciated. Vital Signs: 00:15 BP 162 / 86; Pulse 81; Resp 16; Temp 97.8(TE); Pulse Ox 99% on R/A; Weight 61.23 kg jb4 (R); Height 4 ft. 9 in. (144.78 cm) (R); Pain 0/10; 01:15 BP 154 / 87; Pulse 82; Resp 16; Pulse Ox 97% on R/A; jb4 02:45 BP 155 / 83; Pulse 69; Resp 16; Pulse Ox 100% on R/A; jb4 04:00 BP 145 / 74; Pulse 69; Resp 16; Pulse Ox 99% on R/A; jb4 00:15 Body Mass Index 29.21 (61.23 kg, 144.78 cm) jb4 MDM: 00:33 Patient medically screened. [facility] 02:03 Data reviewed: vital signs, nurses notes, lab test result(s), EKG, radiologic studies, [facility] CT scan, plain films. 04/03 01:59 Order name: Basic Metabolic Panel [facility] 04/03 01:59 Order name: CBC with Diff [facility] 04/03 01:59 Order name: LFT's [facility] 04/03 01:59 Order name: Magnesium [facility] 04/03 01:59 Order name: NT PRO-BNP [facility] 04/03 01:59 Order name: PT-INR [facility] 04/03 01:59 Order name: Troponin (emerg Dept Use Only) [facility] 04/03 01:59 Order name: Lipase [facility] 04/03 01:59 Order name: Urine Culture [facility] 04/03 02:00 Order name: TSH [facility] 04/03 02:14 Order name: Glucose, Ancillary Testing; Complete Time: 02:34 EDMS 04/03 02:37 Order name: CBC with Automated Diff; Complete Time: 03:58 EDNC 04/03 02:41 Order name: Protime (+INR); Complete Time: 02:44 EDMS 04/03 02:48 Order name: Urine Dipstick--Ancillary (enter results) sp 04/03 01:59 Order name: XRAY Chest (1 view) [facility] 04/03 01:59 Order name: CT Abd/Pelvis - IV Contrast Only [facility] 04/03 01:59 Order name: CT Head C Spine [facility] 04/03 02:52 Order name: Basic Metabolic Panel; Complete Time: 02:54 EDMS 04/03 02:52 Order name: Liver (Hepatic) Function; Complete Time: 02:54 EDMS 04/03 02:52 Order name: Troponin (Emerg Dept Use Only); Complete Time: 02:54 EDMS 04/03 02:52 Order name: NT PRO-BNP; Complete Time: 02:54 EDMS 04/03 02:52 Order name: Magnesium; Complete Time: 02:54 EDMS 04/03 02:52 Order name: Lipase; Complete Time: 02:54 EDMS 04/03 02:54 Order name: Thyroid Stimulating Hormone; Complete Time: 03:58 EDMS 04/03 02:59 Order name: Urine Dipstick-Ancillary; Complete Time: 03:58 EDMS 04/03 03:05 Order name: Manual Differential; Complete Time: 03:58 EDNC 04/03 01:47 Order name: FSBS; Complete Time: 02:46 [facility] 04/03 01:47 Order name: EKG; Complete Time: 01:47 [facility] 04/03 01:47 Order name: EKG - Nurse/Tech; Complete Time: 02:46 [facility] 04/03 01:59 Order name: Cardiac monitoring; Complete Time: 02:46 [facility] 04/03 01:59 Order name: IV Saline Lock; Complete Time: 02:46 [facility] 04/03 01:59 Order name: Labs collected and sent; Complete Time: 02:46 [facility] 04/03 01:59 Order name: O2 Per Protocol; Complete Time: 02:46 [facility] 04/03 01:59 Order name: O2 Sat Monitoring; Complete Time: 02:46 [facility] 04/03 01:59 Order name: Urine Dipstick-Ancillary (obtain specimen); Complete Time: 02:46 [facility] 04/03 04:15 Order name: Orthostatics; Complete Time: 04:29 felisha Administered Medications: 02:30 Drug: NS 0.9% 500 ml Route: IV; Rate: bolus; Site: left antecubital; jb4 03:45 Follow up: Response: No adverse reaction; IV Status: Completed infusion; IV Intake: jb4 500ml 03:45 Drug: NS 0.9% 1000 ml Route: IV; Rate: 125 ml/hr; Site: left antecubital; jb4 03:45 Drug: Potassium Effervescent Tablet 25 mEq Route: PO; jb4 04:18 Follow up: Response: No adverse reaction jb4 04:37 Drug: Aspirin Chewable Tablet 162 mg Route: PO; jb4 04:41 Follow up: Response: No adverse reaction; Medication administered at discharge. jb4 Disposition: 04/03/19 04:19 Discharged to Home. Impression: Weakness, Hypokalemia. - Condition is Stable. - Discharge Instructions: Potassium Content of Foods, Near-Syncope, Weakness, Fatigue, Near-Syncope, [id number], Weakness, [id number], Aspirin and Your Heart, Hypokalemia. - Medication Reconciliation Form, Thank You Letter, Antibiotic Education, Prescription Opioid Use form. - Follow up: Private Physician; When: 2 - 3 days; Reason: Recheck today's complaints, Continuance of care, Re-evaluation by your physician. - Problem is new. - Symptoms have improved. Signatures: Dispatcher [employer] EDJuan Barragan MD MD cha Therrien, Shelly, SERVICE PLUMBER-C SERVICE PLUMBER-Csnw Leighton Payan RN RN jb4 Corrections: (The following items were deleted from the chart) 04:44 04:19 04/03/2019 04:19 Discharged to Home. Impression: Weakness; Hypokalemia. Condition jb4 is Stable. Forms are Medication Reconciliation Form, Thank You Letter, Antibiotic Education, Prescription Opioid Use. Follow up: Private Physician; When: 2 - 3 days; Reason: Recheck today's complaints, Continuance of care, Re-evaluation by your physician. Problem is new. Symptoms have improved. felisha
[2019-04-03] MEDS ORDERED: ASPIRIN 81 MG CHEWABLE TABLET ONE (04:36)
[2019-04-03 04:52] VITALS: TEMP 97.8
[2019-04-03 04:56] VITALS: BP 145/74; O2SAT 99
--- NOTE | 2019-04-03 07:44 | EKG ---
Test Date: 2019-04-03 Test Time: 02:18:38 Parquet Floor Layer: NIKA MEASUREMENT RESULTS: Intervals: Rate: 76 IL: 128 QRSD: 72 QT: 426 QTc: 479 [place]: P: 56 IL: 128 QRS: 32 T: 67 INTERPRETIVE STATEMENTS: Normal sinus rhythm Normal ECG Compared to ECG 10/02/2017 20:28:54 No significant changes Electronically Signed On 04-03-19 07:44:20 [employer]ORT FURNACE HELPER by Jeferson Toure
--- NOTE | 2019-04-03 09:53 | RAD REPORT ---
EXAM DESCRIPTION: Rosa Single View04/03/2019 2:20 am CLINICAL HISTORY: cough COMPARISON: 2011 FINDINGS: The lungs appear clear of acute infiltrate. The heart is normal size IMPRESSION: No acute abnormalities displayed
--- NOTE | 2019-04-04 11:12 | RAD REPORT ---
EXAM DESCRIPTION: CT - Abdomen Pelvis W Contrast - 04/03/2019 4:31 am CLINICAL HISTORY: 60-year-old female with abdominal pain TECHNIQUE: Axial CT imaging of the abdomen and pelvis was performed following the administration of intravenous contrast.. Sagittal and coronal reconstructed images were then performed. The CT stud y is performed according to ALARA (as low as reasonably achievable) or ALARA/IMAGE GENTLY, with autom atic adjustment of mA and/or kV according to patient size. Performed on: 04/03/2019 at 3:24 AM. COMPARISON: No prior studies were available for comparison. FINDINGS: Lung bases: The visualized lung bases are clear. Liver: The liver is normal in size and configuration. No focal hepatic abnormalities are identified. Liver attenuation is within normal limits. Spleen: The spleen is normal is size, configuration and attenuation. Gallbladder and bile duct: The gallbladder is is well distended. There is a small focal area of inc reased density within the gallbladder fundus which is nonspecific. This could represent a small stone or sludge (series 502, image 30). There is no biliary ductal dilatation. Pancreas: The pancreas is grossly normal in size and configuration. Adrenal Glands: The adrenal glands are normal in size and configuration. Kidneys: The kidneys are normal in size and configuration. There is no evidence of hydronephrosis. Th ere is a nonobstructing calcification in the lower pole of the left kidney. No definite solid or cyst ic renal mass lesions are identified. Stomach: The stomach is grossly normal. There is no definite hiatal hernia. Bowel: The bowel gas pattern is non specific and non obstructive. Appendix: The appendix is normal. Free air: There is no evidence of free air. Free fluid: There is no evidence of free fluid. Vasculature: The aorta is normal in caliber and contour. The inferior vena cava is grossly unremarkab le. Lymphadenopathy: No pathologic lymphadenopathy is identified. Bladder: The bladder is well distended and smooth in contour. Reproductive: The uterus is grossly within normal limits. Bones: No acute osseous abnormalities are identified. Soft tissues: No focal soft tissue abnormalities are identified. IMPRESSION: 1. No evidence of acute intra-abdominal or intrapelvic pathology. 2. Nonobstructing calcification in the lower pole of the left kidney. 3. Possible stone or sludge within the gallbladder fundus. Electronically signed by: Meena Bolanos DO 04/03/2019 3:55 AM CHAMBER W[employer]ER Due to temporary technical issues with the PACS/Fluency reporting system, reports are being signed by the in house radiologist as a courtesy to ensure prompt reporting. The interpreting radiologist is f ully responsible for the content of the report.
--- NOTE | 2019-04-04 11:13 | RAD REPORT ---
EXAM DESCRIPTION: CT - Head C Spine Mpr Wo Con - 04/03/2019 4:30 am CLINICAL HISTORY: Pain. COMPARISON: None. TECHNIQUE: Axial [address] imaging of the brain. Axial [address] imaging of the cervical spine. Reformatted coronal and sagittal images obtai gurdeep. This examination was performed according to our departmental dose optimization program, which include s automated exposure control, adjustment of the mA and/or kV according to patient size and/or use of iterative reconstruction technique. FINDINGS: CT Head: Ventricles and extra-axial fluid spaces appear normal. Martinez-white matter differentiation is preserved . No intracranial hemorrhage, mass, midline shift, edema, or acute infarction. Normal cerebellum and vermis. Fourth ventricle is midline. Prepontine cisterns are not effaced. Normal sella contents. There is a right scleral band. Intraorbital contents are otherwise normal. Clear paranasal sinuses. M astoid air cells are clear. Skull base and calvarium are intact. CT cervical spine: There is broad reversal of cervical lordosis. No compression fracture. No subluxation. Mild to modera te hypertrophic end plate changes throughout the cervical spine. There is uncovertebral joint hypertr ophy at multiple levels. There is [id number] multilevel foraminal stenosis, greatest on the rig ht side at C5-6. No prevertebral edema. No fracture within the odontoid process and lateral masses. C raniocervical and cervicothoracic junction alignment is maintained. No fracture within the posterior elements. Multilevel posterior disc spur complexes. This is flattening the ventral thecal sac at C5-6. There is a normal appearance of the parapharyngeal soft tissues and mucosal spaces. Normal epiglottis and included larynx. IMPRESSION: 1. No intracranial acute finding. 2. Generalized cervical spondylosis as detailed above. Muscle spasm. No acute cervical spine finding. Electronically signed by: Della Triplett DO 04/03/2019 3:52 AM DIRECTOR ENGINEERING Due to temporary technical issues with the PACS/Fluency reporting system, reports are being signed by the in house radiologist as a courtesy to ensure prompt reporting. The interpreting radiologist is f ully responsible for the content of the report.
== END 2019-04-03 04:44 | disposition home or self-care (01) ==
LOC: ER 00:15
DX: E87.6 Hypokalemia (principal); R10.813 Right lower quadrant abdominal tenderness; I10 Essential (primary) hypertension; E11.9 Type 2 diabetes mellitus without complications; E07.9 Disorder of thyroid, unspecified; I50.9 Heart failure, unspecified
CPT/HCPCS: 93005; 87088; 85025; 87086; 80048; 36415; 83735; 85610; 82947; 80076; 84443; 81003; 84484; 83690; 83880; 70450; 72125; 74177; 71045; 96360; 99284; Q9967; J7030